=== PATIENT | male | born 1955 | race Caucasian/White ===

== ENCOUNTER 2016-05-21 05:27 | Day surgery (SDC) | payer MEDICAID ==
[2016-05-21] MEDS ORDERED: LR 1,000 ML IV ONE (05:50)
[2016-05-21] MEDS ORDERED: EPINEPHrine 30 MG/30 ML MDV ONE (06:54)
[2016-05-21] MEDS ORDERED: SKIN ADHESIVE (DERMABOND) 1 EACH TP ONE (06:54)
[2016-05-21] MEDS ORDERED: fentaNYL 250 MCG/5 ML INJ ONE (06:59)
[2016-05-21] MEDS ORDERED: PROPOFOL/EMULSION 500 MG/50 ML BOTTLE IV ONE (07:00)
[2016-05-21] MEDS ORDERED: ceFAZolin 2 GM in D5W 100 ML IV ONE (07:00)
[2016-05-21] MEDS ORDERED: LIDO/BUPIVA/morphINE 15ML SYR IU ONE (07:00)
[2016-05-21] MEDS ORDERED: LIDO/BUPIVA 10ML SYR IU ONE (07:00)
[2016-05-21] MEDS ORDERED: CHLORHEXIDINE GLUC HIBICLENS 118 ML BTL TP ONE (07:00)
[2016-05-21] MEDS ORDERED: MIDAZOLAM 2 MG/2 ML VIAL ONE (07:09)
[2016-05-21] MEDS ORDERED: ceFAZolin 1 GM VIAL ONE (08:20)
[2016-05-21] MEDS ORDERED: METOCLOPRAMIDE 10 MG/2 ML VIAL ONE (08:20)
[2016-05-21] MEDS ORDERED: DIAZEPAM 10 MG/2 ML SYR ONE (08:20)
[2016-05-21] MEDS ORDERED: KETOROLAC 30 MG/1 ML SDV ONE (08:20)
[2016-05-21] MEDS ORDERED: ONDANSETRON 4 MG/2 ML VIAL ONE (08:20)
[2016-05-21] MEDS ORDERED: PROPOFOL 200 MG/20 ML VIAL ONE (08:31)
[2016-05-21] MEDS ORDERED: ROPIVACAINE HCL 150 MG/30 ML INJ ONE (09:20)
--- NOTE | 2016-05-21 11:42 | GOP ---
[f rep st] OPERATIVE REPORT DATE OF OPERATION: 05/21/2016 SURGEON: Sarwat Duncan MD JEWEL SORTER: SHANICE Hope. It should be noted no qualified resident was available. health assistant was necessary to assist with the procedure. ANESTHESIA: General with interscalene block. ANESTHESIOLOGIST: Iliana Don MD. PREOPERATIVE DIAGNOSIS: Left shoulder rotator cuff tear, biceps tendinitis, impingement. POSTOPERATIVE DIAGNOSIS: Left shoulder small rotator cuff tear, biceps tendinitis, impingement, and glenohumeral joint osteoarthritis with grade 4 lesion in the midportion of the humeral head and also the anterior glenoid. PATIENT POSITION: Beach chair. PROCEDURE PERFORMED: 1. Arthroscopic repair of the left shoulder rotator cuff tear, CPT code 74712. 2. Arthroscopic subacromial decompression, CPT code 59431. 3. Mini open subpectoral biceps tenodesis, CPT code 12624. 4. Arthroscopic debridement of the glenohumeral joint, CPT code 11110. FINDINGS: 1. Glenohumeral joint with some grade 4 lesion in the midhumeral head, approximately 8 mm, with some flaking edges. 2. Glenoid with a cartilage flap in the anterior area, approximately the 4 o' clock position, with unstable loose cartilage flap, with an exposed grade 4 lesion. 3. Intact labrum. 4. Biceps tendinitis. 5. A high-grade small bursal-sided tear of the rotator cuff. 6. Moderate subacromial bursitis. 7. Downsloping anterior acromion. INDICATIONS: The patient is a 60-year-old with persistent left shoulder pain. Examination was consistent with small rotator cuff tear, biceps tendinitis, and subacromial impingement. He has done well with injections, and has had recurrent pain. The plan, based on the imaging and the examination and response to injections, was a subacromial decompression, repair of the rotator cuff, and biceps tenodesis. The patient understood the potential risks and benefits including, but not limited to, bleeding, infection, persistent pain, stiffness, anesthetic risks. DESCRIPTION OF PROCEDURE: The patient was taken to the operating room. After undergoing successful general anesthesia and an interscalene block, the patient was placed in a beach chair position. Left upper extremity was prepped and draped in the usual sterile manner. Anatomic landmarks were identified. The anterior and posterior portal sites were injected with 0.25% Marcaine and 1% lidocaine. The subacromial space was injected with the same. Posterior portal was made. The arthroscope was placed in the joint. With the arthroscope in the joint, anterior portal was made. The findings are as described above. There was a loose cartilage flap anteriorly. This was subsequently debrided in the joint. There were good edges around this. This measured approximately 6 mm across. Additionally, there was a grade 4 lesion on the humeral head with some flaking edges; this was debrided. Next, the biceps tenodesis was done. The arthroscope was taken out. An anterior axillary incision was made. The pectoralis was reflected superiorly. The Hohmann retractors were placed. The biceps groove was curetted. A 2.9 mm JuggerKnot suture anchor was placed, and this had two #2 MaxBraid sutures. These were passed through and around the biceps tendon. The biceps was tenodesed into the groove. The biceps was cut above this. The arthroscope was placed into the joint, and the biceps was cut at the attachment with the superior labrum. This section of the biceps was taken out. The superior labrum was debrided. Next, the arthroscope was placed in the subacromial space. A bursectomy was performed from the lateral portal, after the bursectomy. Any small bleeders were coagulated using electrocautery. Next, the acromionizer bur was utilized to do the acromioplasty. This was done beginning anterolateral and extended from anterolateral to anteromedial with the acromionizer bur. The acromion was made flat. Next, the anchor was placed into the bone for the rotator cuff repair. Small drill hole was made more medial along the greater tuberosity to help stimulate bleeding and healing. The sutures from the anchor, which was a 2.9 mm JuggerKnot suture anchor, were placed through the rotator cuff tear. The sutures were placed on either side. This was a small v-shaped tear. This brought the edges together and back down to the bone. These sutures were tied down using arthroscopic knot tying technique. This provided excellent fixation. This provided excellent fixation with a small repair with good tissue. The area was then irrigated. Portal sites closed using 3-0 nylon suture. Anterior axillary incision closed using 3-0 Monocryl suture, followed by running 3-0 Prolene. The subacromial space was injected with 0.25% Marcaine, 1% lidocaine, and 5 mg of Duramorph. The patient had a sterile dressing. The patient was placed in a sling with small abduction pillow. Patient was awakened and taken to the recovery room in stable condition. Sponge, instrument, and needle counts were correct. PLAN: The patient will undergo physical therapy with an emphasis on passive motion for the next 6 weeks. No active biceps motion for the next 4 weeks. We will follow the [facility] rotator cuff protocol. /[id number]/MODL MTDD
== END 2016-05-21 11:35 | disposition home or self-care (01) ==
LOC: FSGY 05:27
PROVIDERS: ATTEND Orthopaedic Surgery Sports Medicine
PROC: 0LQ20ZZ Repair Left Shoulder Tendon, Open Approach (ICD-10-PCS; principal; 2016-05-21 07:15)
PROC: 0LQ24ZZ Repair Left Shoulder Tendon, Percutaneous Endoscopic Approach (ICD-10-PCS; principal; 2016-05-21 07:15)
PROC: 0RNK4ZZ Release Left Shoulder Joint, Percutaneous Endoscopic Approach (ICD-10-PCS; principal; 2016-05-21 07:15)
DX: M75.102 Unspecified rotator cuff tear or rupture of left shoulder, not specified as traumatic (principal); M75.22 Bicipital tendinitis, left shoulder; M75.42 Impingement syndrome of left shoulder; M19.012 Primary osteoarthritis, left shoulder; J45.909 Unspecified asthma, uncomplicated; F41.9 Anxiety disorder, unspecified; K21.9 Gastro-esophageal reflux disease without esophagitis; M10.9 Gout, unspecified
CPT/HCPCS: C1713; J0690; J1885; J2250; J2274; J2405; J2704; J2765; J2795; J3010

== ENCOUNTER 2018-07-15 15:42 | Emergency (ER) | payer MEDICAID ==
--- NOTE | 2018-07-15 16:02 | EDPHY ---
H & P Stated Complaint: Bilat UQ pn exac by eating, intermittent, denies N/V/D. Time Seen by Provider: 07/15/18 16:01 - Personal History Current Tetanus/Diphtheria Vaccine: Unsure - Medical/Surgical History Hx Asthma: Yes Hx Chronic Respiratory Disease: No Hx Diabetes: No Hx Cardiac Disease: No Hx Renal Disease: No Hx Cirrhosis: No Hx Alcoholism: Yes Hx HIV/AIDS: No Hx Splenectomy or Spleen Trauma: No Other PMH: l knee surgery, asthma,. anxiety - Social History Smoking Status: Former smoker Constitutional: Initial Vital Signs Temperature (C) 36.5 C 07/15/18 15:50 Heart Rate 84 07/15/18 15:50 Respiratory Rate 16 07/15/18 15:50 Blood Pressure 149/87 H 07/15/18 15:50 O2 Sat (%) 95 07/15/18 15:50 O2 Delivery Mode Room Air Allergies/Adverse Reactions: No Known Allergies Allergy (Verified 07/15/18 15:50) Home Medications: Medication Instructions Recorded Allopurinol 05/04/16 Lunesta 05/04/16 Naprosyn 05/04/16 Nexium 05/04/16 Oxycodone HCl 05/04/16 Proair Hfa Icu (*) 05/04/16 Pantoprazole Sodium [Protonix 40mg 40 mg PO DAILY #30 tab 07/15/18 (*)] Medical Decision Making - Diagnostics Imaging Results: Imaging Impressions Abdomen Ultrasound 07/15/18 16:06 Impression: 1. Findings compatible with cholelithiasis with nonmobile stones/sludge in the gallbladder fundus without sonographic evidence of acute cholecystitis. No biliary ductal dilatation. Mateusz Tipton was notified these findings by telephone at 5:13 PM on 07/15/2018 Imaging: Discussed imaging studies w/ field service technician poultry Radiologist, I viewed and interpreted images myself ED Course/Re-evaluation: CHIEF COMPLAINT: Upper abdominal pain HISTORY OF PRESENT ILLNESS: The patient is a 62 y/o male with a history of gallstones complaining of upper abdominal pain onset 4 days ago. The patient stopped drinking alcohol 12 days ago and "had bad withdrawal". He reports that he was drinking several pint of alcohol for several months. After developing the abdominal pain he tried seeing his executive producer, but was unable to schedule an appointment. As his pain has not improved he decided to present to the emergency department. He currently cannot discern what make his pain worse and cannot point to a focal area of pain. No fever, headache, body aches, lightheadedness, chest pain, heart palpitations, shortness of breath, cough, urinary or bowel complaints, numbness, paresthesias. REVIEW OF SYSTEMS: A comprehensive 10 system review of systems is otherwise negative aside from elements mentioned in the history of present illness and medical decision making. PHYSICAL EXAM: HR, BP, O2 Sat, RR. Temp noted General Appearance: Alert, well hydrated, appropriate, and non-toxic appearing. Head: Atraumatic without scalp tenderness or obvious injury Eyes: Pupils equal, round, reactive to light and accommodation, EOMI, no trauma , no injection. Ears: Clear bilaterally, no perforation, normal landmarks Nose: Atraumatic, no rhinorrhea, clear. Throat: There is no erythema or exudates, no lesions, normal tonsils, mucus membranes moist. Neck: Supple, 2+ carotid upstroke, nontender, no lymphadenopathy. Respiratory: No retractions, no distress, no wheezes, and no accessory muscle use. Lungs are clear to auscultation bilaterally. Cardiovascular: Regular rate and rhythm, no murmurs, rubs, or gallops. Bilateral carotid, radial, dorsalis pedis, and posterior tibial pulses intact. Good capillary refill all extremities. Gastrointestinal: Diffuse abdominal pain without tenderness to palpation. Abdomen is soft, non-distended, no masses, no rebound, no guarding, no peritoneal signs. Musculoskeletal: Normal active ROM of all extremities, atraumatic. Neurological: Alert, appropriate, and interactive. The patient has normal DTRs and non-focal cranial nerves, motor, sensory, and cerebellar exam. Skin: No rashes, good turgor, no nodules on palpation. Past medical history: Gallstones, asthma, anxiety, former alcohol and cocaine use Past surgical history: Left knee surgery Family history: Denies Social history: Lives in [place], single, employed DIAGNOSTICS/PROCEDURES/CRITICAL CARE TIME: RUQ US: Impacted gallstones without signs of cholecystitis. No ductal dilatation. Normal pancreas and liver. DIFFERENTIAL DIAGNOSIS: The differential diagnosis for the patient's abdominal pain included but was not limited to appendicitis, cholecystitis, hernias, testicular torsion, gastritis, and urinary tract infection. MEDICAL DECISION MAKING: The patient is a 62 y/o male with a history of gallstones complaining of upper abdominal pain onset 4 days ago. The patient stopped drinking alcohol 12 days ago and "had bad withdrawal". On exam he has diffuse upper abdominal pain but no pain to palpation. Labs and RUQ US ordered; 1L IV NS administered. 1713: I spoke with Dr. Ortiz, radiologist, regarding patient's RUQ US. Patient has impacted gallstones without signs of cholecystitis. His labs are also unremarkable. Patient most likely has alcoholic gastritis. I will prescribe him Protonix and advise him to to follow up with GI. 1720: Reassessed patient and discussed laboratory and imaging findings. He is comfortable with plan for follow up and taking Protonix. Return precautions provided; patient is comfortable with this plan. - Data Points Laboratory Results: Laboratory Results 07/15/18 16:10 07/15/18 16:10 07/15/18 07/15/18 07/15/18 16:21 16:10 16:10 WBC 7.54 10^3/uL 10^3/uL (3.80-9.50) RBC 4.46 10^6/uL 10^6/uL (4.40-6.38) Hgb 14.3 g/dL g/dL (13.7-17.5) POC Hgb 13.6 gm/dL L gm/dL (13.7-17.5) Hct 41.0 % % (40.0-51.0) POC Hct 40 % % (40-51) MCV 91.9 fL fL (81.5-99.8) MCH 32.1 pg pg (27.9-34.1) MCHC 34.9 g/dL g/dL (32.4-36.7) RDW 12.4 % % (11.5-15.2) Plt Count 323 10^3/uL 10^3/uL (150-400) MPV 10.0 fL fL (8.7-11.7) Neut % (Auto) 81.3 % H % (39.3-74.2) Lymph % (Auto) 11.9 % L % (15.0-45.0) [place] % (Auto) 3.8 % L % (4.5-13.0) Eos % (Auto) 1.3 % % (0.6-7.6) Baso % (Auto) 0.8 % % (0.3-1.7) Nucleat RBC Rel Count 0.0 % % (0.0-0.2) Absolute Neuts (auto) 6.12 10^3/uL 10^3/uL (1.70-6.50) Absolute Lymphs (auto) 0.90 10^3/uL L 10^3/uL (1.00-3.00) Absolute Monos (auto) 0.29 10^3/uL L 10^3/uL (0.30-0.80) Absolute Eos (auto) 0.10 10^3/uL 10^3/uL (0.03-0.40) Absolute Basos (auto) 0.06 10^3/uL 10^3/uL (0.02-0.10) Absolute Nucleated RBC 0.00 10^3/uL 10^3/uL (0-0.01) Immature Gran % 0.9 % % (0.0-1.1) Immature Gran # 0.07 10^3/uL 10^3/uL (0.00-0.10) POC Sodium 142 mEq/L mEq/L (135-145) Sodium 138 mEq/L mEq/L (135-145) POC Potassium 4.7 mEq/L mEq/L (3.3-5.0) Potassium 5.1 mEq/L mEq/L (3.5-5.2) POC Chloride 107 mEq/L mEq/L (97-110) Chloride 107 mEq/L mEq/L (97-110) Carbon Dioxide 21 mEq/l L mEq/l (22-31) POC Total CO2 23 mEq/L mEq/L (22-31) Anion Gap 10 mEq/L mEq/L (6-14) POC BUN 24 mg/dL H mg/dL (7-23) BUN 23 mg/dL mg/dL (7-23) Creatinine 1.1 mg/dL mg/dL (0.7-1.3) POC Creatinine 1.1 mg/dL mg/dL (0.7-1.3) Estimated GFR > 60 Glucose 92 mg/dL mg/dL (70-100) POC Glucose 88 mg/dL mg/dL (70-100) Calcium 9.8 mg/dL mg/dL (8.5-10.4) Total Bilirubin 0.7 mg/dL mg/dL (0.1-1.4) Conjugated Bilirubin 0.4 mg/dL mg/dL (0.0-0.5) Unconjugated Bilirubin 0.3 mg/dL mg/dL (0.0-1.1) AST 40 IU/L IU/L (17-59) ALT 32 IU/L IU/L (21-72) Alkaline Phosphatase 114 IU/L IU/L (38-126) Total Protein 7.7 g/dL g/dL (6.3-8.2) Albumin 4.4 g/dL g/dL (3.5-5.0) Lipase 110 IU/L IU/L (23-300) Medications Given: Discontinued Medications Sodium Chloride (Ns) 1,000 mls @ 0 mls/hr IV EDNOW ONE; Wide Open PRN Reason: Protocol Stop: 07/15/18 16:07 Last Admin: 07/15/18 16:10 Dose: 1,000 mls Point of Care Test Results: Chemistry 07/15/18 16:21 POC Sodium 142 mEq/L mEq/L (135-145) POC Potassium 4.7 mEq/L mEq/L (3.3-5.0) POC Chloride 107 mEq/L mEq/L (97-110) POC Total CO2 23 mEq/L mEq/L (22-31) POC BUN 24 mg/dL H mg/dL (7-23) POC Creatinine 1.1 mg/dL mg/dL (0.7-1.3) POC Glucose 88 mg/dL mg/dL (70-100) ISTAT H&H 07/15/18 16:21 POC Hgb 13.6 gm/dL L gm/dL (13.7-17.5) POC Hct 40 % % (40-51) Departure - Departure Disposition: Home, Routine, Self-Care Clinical Impression: Alcoholic gastritis Qualifiers: Chronicity: acute Gastritis bleeding: without bleeding Qualified Code(s): K29.20 - Alcoholic gastritis without bleeding Condition: Good Instructions: Gastritis (ED) Additional Instructions: 1. Take Protonix as prescribed. 2. Followup with your executive producer within one week. 3. Return to the emergency apartment for fever, severe pain, inability to urinate or have a bowel movement or other concerns. Referrals: ALIDA WEN [Primary Care Provider] - As per Instructions Mitchell Martinez MD [Medical Doctor] - As per Instructions Prescriptions: Pantoprazole Sodium [Protonix 40mg (*)] 40 mg PO DAILY #30 tab Report Scribed for: Mateusz Tipton Report Scribed by: Alannah Mckeon Date of Report: 07/15/18 Time of Report: 16:03
[2018-07-15] MEDS ORDERED: NS 1,000 ML IV ONE (16:06)
[2018-07-15 16:26] LABS: PLATELET COUNT 323 10^3/uL (150-400)
[2018-07-15 17:27] VITALS: BP 125/90
== END 2018-07-15 17:28 | disposition home or self-care (01) ==
DX: K29.20 Alcoholic gastritis without bleeding (principal); E86.9 Volume depletion, unspecified; F10.10 Alcohol abuse, uncomplicated; Z87.19 Personal history of other diseases of the digestive system
CPT/HCPCS: 82435-PO; 82565-PO; 82947-PO; 84132-PO; 84295-PO; 84520-PO; 85014-ER